=== PATIENT | male | born 1975 | race Caucasian/White ===

== ENCOUNTER 2017-05-07 09:50 | Day surgery (SDC) | payer OTHER ==
[2017-05-07] VITALS (10 sets, daily range): BP systolic 101–119; BP diastolic 63–79
[~2017-05-07] VITALS: Ht 185.4 cm; Wt 83.9 kg
[~2017-05-07 09:50] MED LIST: MULTIVITAMINS1 EAC2 ORAL
[2017-05-07] MEDS ORDERED: PROBIOTIC1 EAC5 PO (10:36)
--- NOTE | 2017-05-07 11:24 | Pre-Procedure Note/Attestation ---
Pre-Procedure Note/Attestation Complete Prior to Procedure Planned Procedure: left Procedure Narrative: Excision of left foot cancer and adjacent tissue transfer closure Attestation I attest that I discussed the nature of the procedure; its benefits; risks and complications; and alternatives (and the risks and benefits of such alternatives ), prior to the procedure, with the patient (or the patient's legal veterans service representative). I attest that, if there was a reasonable possibility of needing a blood transfusion, the patient (or the patient's legal veterans service representative) was given the [facility] standardized written summary, pursuant to the [place] Ethan Blood Safety Act ([place] Health and Safety Code # 1645, as amended). I attest that I re-evaluated the patient just prior to the surgery and that there has been no change in the patient's H&P, except as documented below: AIDA BALLARD May 07, 2017 11:24
[2017-05-07] MEDS ORDERED: LR 1000ml 1,000 ML IVLG SCH (11:48)
--- NOTE | 2017-05-07 11:48 | Anethesia Preoperative Eval ---
Anesthesia Pre-op PMH/ROS General Date of Evaluation: May 07, 2017 Anesthesiologist: Navjot ASA Score: ASA 1 Mallampati Score Class I : Soft palate, uvula, fauces, pillars visible Class II: Soft palate, uvula, fauces visible Class III: Soft palate, base of uvula visible Class IV: Only hard plate visible Mallampati Classification: Class II Surgeon: Andreia Diagnosis: Left foot skin cancer Surgical Procedure: Left foot skin cancer excision Anesthesia History: none Family History: no anesthesia problems Allergies: Coded Allergies: No Known Allergies (Unverified , 05/06/17) Medications: see eMAR Past Medical History Cardiovascular: Denies: CAD, HTN, [place], arrhythmia, other, valve dz Pulmonary: Denies: COPD, JO-ANN, asthma, other Gastrointestinal/Genitourinary: Denies: CRI, ESRD, GERD, other Neurologic/Psychiatric: Denies: CVA, TIA, dementia, depression/anxiety, other Endocrine: Denies: DM, hypothyroidism, other, steroids HEENT: Denies: NIKOLSKI (L), NIKOLSKI (R), cataract (L), cataract (R), glaucoma, other Hematology/Immune: Denies: DVT, anemia, bleeding disorder, other Musculoskeletal/Integumentary: Denies: DDD, DJD, OA, RA, edema, other PSxH Narrative: T&A Anesthesia Pre-op Phys. Exam Physician Exam Last Vital Signs Date Time Temp Pulse Resp B/P Pulse Ox O2 Delivery O2 Flow Rate FiO2 05/07/17 10:29 98.5 70 20 119/79 98 Room Air Constitutional: NAD Cardiovascular: RRR Respiratory: CTA Airway Exam Mallampati Score: Class II MO: full ROM: full Teeth: intact Anesthesia Pre-op A/P Labs see chart Studies Pre-op Studies: EKG - sr Risk Assessment & Plan Assessment: ASA II Plan: MAC Status Change Before Surgery: No Pre-Antibiotics Drug: Ancef 1g Given Within 1 Hr of Incision: Yes ROE KONG M.D. May 07, 2017 11:48
[2017-05-07] MEDS ORDERED: fentaNYL 100 mcg/2 mL IV ONE (12:00)
[2017-05-07] MEDS ORDERED: Hydromorphone 0.5mg/0.5ml inj IVP PRN (12:00)
[2017-05-07] MEDS ORDERED: Sterile Water Irrig 1000ml IRRIG ONE (12:00)
[2017-05-07] MEDS ORDERED: fentaNYL 100 mcg/2 mL IV PRN ×2 (12:00→13:00)
[2017-05-07] MEDS ORDERED: NS Irrig 1000ml ONE (12:00)
[2017-05-07] MEDS ORDERED: Midazolam 2mg/2ml Inj ONE (12:00)
[2017-05-07] MEDS ORDERED: LR 1000ml ONE (12:00)
[2017-05-07] MEDS ORDERED: DiphenhydrAMINE 50mg/ml Inj IVP PRN (12:00)
[2017-05-07] MEDS ORDERED: Ketorolac 30mg Inj IV PRN ×2 (12:00→13:00)
[2017-05-07] MEDS ORDERED: Lidocaine 1% 10mg/ml/Epi 0.005mg/ml 30ml vial INJ ONE (12:13)
--- NOTE | 2017-05-07 12:52 | Operative Note - PDOC ---
Operative Note Operative Note Pre-op Diagnosis: Left foot skin cancer Procedure: Excision of left foot skin cancer and wound closure Surgeon: Andreia Anesthesia: local Specimen: yes Estimated Blood Loss: minimal Drains: none Implant(s) used?: No AIDA BALLARD May 07, 2017 12:52
--- NOTE | 2017-05-07 12:56 | Anethesia Preoperative Eval ---
Anesthesia Pre-op PMH/ROS General Date of Evaluation: May 07, 2017 Time of Evaluation: 12:00 Anesthesiologist: ruby ASA Score: ASA 1 Mallampati Score Class I : Soft palate, uvula, fauces, pillars visible Class II: Soft palate, uvula, fauces visible Class III: Soft palate, base of uvula visible Class IV: Only hard plate visible Mallampati Classification: Class II Anesthesia History: none Allergies: Coded Allergies: No Known Allergies (Unverified , 05/06/17) Anesthesia Pre-op Phys. Exam Physician Exam Last Vital Signs Date Time Temp Pulse Resp B/P Pulse Ox O2 Delivery O2 Flow Rate FiO2 05/07/17 10:29 98.5 70 20 119/79 98 Room Air Airway Exam Mallampati Score: Class II Kenyon Jean MD May 07, 2017 12:56
--- NOTE | 2017-05-07 12:57 | Immediate Post-Op Evaluation ---
Immediate Post-Op Evalulation Immediate Post-Op Evalulation Procedure: left foot lesion removal Date of Evaluation: May 07, 2017 Time of Evaluation: 12:56 Nausea: No Vomiting: No Hydration Status: adequate Given Within 1 Hr of Incision: Yes Kenyon Jean MD May 07, 2017 12:57
[2017-05-07] MEDS ORDERED: HYDROmorphone 1mg/ml Carpuject SUBQ PRN (13:00)
[2017-05-07] MEDS ORDERED: D5 1/2NS 1,000 ML IV SCH (13:00)
[2017-05-07] MEDS ORDERED: Norco 5mg/325mg tab ORAL PRN (13:00)
[2017-05-07] MEDS ORDERED: Tylenol #3 tab (300mg/30mg) ORAL PRN (13:00)
--- NOTE | 2017-05-07 18:15 | Operative Note - Dictated ---
DATE OF OPERATION: 05/07/2017 PREOPERATIVE DIAGNOSIS: Left lateral foot skin lesion, suspicious for cancer. POSTOPERATIVE DIAGNOSIS: Left lateral foot skin lesion, suspicious for cancer. PROCEDURES: 1. Excision of the malignant/cancerous skin lesions. 2. Adjacent tissue transfer closure of left foot wound. SURGEON: Hayden Boswell M.D. FINAL EXPENSE AGENT: None. ANESTHESIA: Local with sedation. SPECIMEN: Left lateral foot skin lesion. COMPLICATIONS: None. DISPOSITION: Stable to the recovery room. INDICATIONS FOR SURGERY: This is a 41-year-old male who has had a biopsy-proven left lateral foot skin lesion, which is suspicious for malignancy and is requiring definitive excision for management. I saw the patient in the office and schedule the procedure. The patient to undergo this procedure in the operating room. He understood the risks and benefits of surgery and agreed to proceed. DETAILS OF THE OPERATION: The patient was brought to the operating room and laid in the supine position on the operating room table. He was given some sedation and local was injected into the left lateral foot, total of 10 mL of lidocaine with epinephrine was injected around the lesion. The lesion was located in the left lateral foot just in the region of the posterior foot. An elliptical incision was designed to encompass the lesion as well as having approximately [address] around and after the local was within the wound for approximately five minutes, a #10 blade was then used to make elliptical incision to excise the skin cancer. Suture orientation was done with 3-0 nylon sutures for the pathologist. Once this was done, flaps were elevated on both the superior and inferior aspect of the wound to allow for adjacent tissue transfer of the wound. Hemostasis was achieved with irrigation following and the wound was then closed with adjacent tissue transfer of the flap using 2-0 and 3-0 Vicryl sutures and multiple interrupted 3-0 Prolene sutures were used to close the skin. The patient tolerated the procedure well. There was no complications. Haydne Boswell M.D. DR: ALEX JOB#: [id number] CC:
--- NOTE | 2017-05-09 09:22 | 48 Hour Post Anesthesia Eval ---
Post Anesthesia Evaluation Procedure: left foot lesion removal Date of Evaluation: May 09, 2017 Time of Evaluation: 09:22 Nausea: No Vomiting: No Mental Status/LOC: patient returned to baseline Follow-up care needed: ready to discharge Kenyon Jean MD May 09, 2017 09:22
== END 2017-05-07 14:35 | disposition home or self-care (01) ==
LOC: SUR 09:50
DX: L98.8 Other specified disorders of the skin and subcutaneous tissue (principal)
CPT/HCPCS: 14040; J0690; J2250; J3010; J7120; 94003; 94150